=== PATIENT | female | born 1940 | race African-American/Black ===

== ENCOUNTER 2017-03-04 10:09 | Inpatient (IN) | payer OTHER ==
[~2017-03-04] VITALS: Ht 167.6 cm; Wt 82.8 kg
[2017-03-04 11:08] LABS: EOSINOPHIL (%) 0.1 % (0-5); HEMATOCRIT 36.9 % (36.0-46.0); IMMATURE GRANULOCYTE (%) 0.4 % (0.0-0.7); INSTRUMENT ABS NEUTROPHIL CT 7.8 K/uL; LYMPHOCYTE COUNT 1.4 K/uL (1.0-2.8); MCH 28.7 PG (29.0-34.0); MCHC 32.8 G/DL (30.0-36.0); MCV 87.4 FL (83-99); MEAN PLAT.VOLUME 10.3 uM^3 (9.5-12.4); MONOCYTE COUNT 0.8 K/uL (0-0.8); NEUTROPHIL (%) 77.7 % (45-76); NEUTROPHIL COUNT 7.8 K/uL (1.8-6.4); PLATELET COUNT 249 K/uL (156-360); RBC DIS.WIDTH-CV 14.5 % (11.8-14.6); RBC DIS.WIDTH-SD 46.2 % (39-53); RED BLOOD COUNT 4.22 M/uL (3.80-5.20)
[2017-03-04 11:14] LABS: INTER. NORMALIZED RATIO 1.2; PROTHROMBIN TIME 13.9 SEC (10.2-12.9)
[2017-03-04 11:16] LABS: CHLORIDE 113 mEq/L (99-109); POTASSIUM 3.5 mEq/L (3.7-5.4); SODIUM 144 mEq/L (136-147)
[2017-03-04 11:17] LABS: PTT 28.6 SEC (25-37)
[2017-03-04 11:18] LABS: GLUCOSE 118 mg/dL (70-99)
[2017-03-04 11:19] LABS: ANION GAP 10 MEQ/L (2-14)
[2017-03-04 11:20] LABS: TOTAL BILIRUBIN 1.4 mg/dL (0.0-1.0)
[2017-03-04 11:21] LABS: ALKALINE PHOSPHATASE 98 IU/L (3-129)
[2017-03-04 11:22] LABS: GFR ESTIMATE (CALCULATED) > 59 mL/min/
[2017-03-04 11:23] LABS: UREA NITROGEN (BUN) 16 mg/dL (9-23)
[2017-03-04 11:27] LABS: TROP-I INTERPRETATION NEGATIVE; TROPONIN-I < 0.01 ng/mL (0.0-0.30)
[2017-03-04] MEDS ORDERED: ANASTROZOLE1 MG PO (17:44)
[2017-03-04] MEDS ORDERED: LO-DOSE ASPIRIN81 M1 PO (17:44)
[2017-03-04] MEDS ORDERED: PROTONIX40 MG PO (17:44)
[2017-03-04] MEDS ORDERED: METOPROLOL SUC100 MG PO (17:44)
[2017-03-04] MEDS ORDERED: NIFEDIPINE ER90 MG PO (17:44)
[2017-03-04] MEDS ORDERED: CALCIUM 600 +1 EAC2 PO (17:45)
[2017-03-04] MEDS ORDERED: ALEVE220 MG PO (17:45)
[2017-03-04] MEDS ORDERED: ATARAX,VISTARIL25 MG PO (17:45)
[2017-03-04] MEDS ORDERED: POTASSIUM CHLO20 ME1 PO (17:45)
[2017-03-04] MEDS ORDERED: LASIX40 MG PO (17:45)
[2017-03-04] MEDS ORDERED: FOLBIC TABLET1 EACH PO (17:45)
[2017-03-04 21:02] VITALS: BP 137/84
[2017-03-05 00:04] VITALS: BP 103/72
[2017-03-05 03:29] LABS: CHLORIDE 115 mEq/L (99-109); SODIUM 143 mEq/L (136-147)
[2017-03-05 03:32] LABS: ANION GAP 8 MEQ/L (2-14)
[2017-03-05 03:41] LABS: GLUCOSE 105 mg/dL (70-99)
[2017-03-05 03:45] LABS: ALKALINE PHOSPHATASE 74 IU/L (3-129); GFR ESTIMATE (CALCULATED) > 59 mL/min/
[2017-03-05 03:51] LABS: UREA NITROGEN (BUN) 16 mg/dL (9-23)
[2017-03-05 06:37] VITALS: BP 149/89
[2017-03-05 11:29] VITALS: BP 119/72
[2017-03-05 15:15] VITALS: BP 104/63
[2017-03-05 19:34] VITALS: BP 130/82
[2017-03-05 23:41] VITALS: BP 123/74
[2017-03-06 02:15] LABS: INTER. NORMALIZED RATIO 1.3; PROTHROMBIN TIME 14.5 SEC (10.2-12.9)
[2017-03-06 02:17] LABS: PTT 61.7 SEC (25-37)
[2017-03-06 04:00] VITALS: BP 123/77
[2017-03-06 07:22] LABS: HEMATOCRIT 36.8 % (36.0-46.0); MCH 29.2 PG (29.0-34.0); MCHC 33.2 G/DL (30.0-36.0); PLATELET COUNT 268 K/uL (156-360); RBC DIS.WIDTH-CV 14.4 % (11.8-14.6); RBC DIS.WIDTH-SD 46.9 % (39-53); RED BLOOD COUNT 4.18 M/uL (3.80-5.20); WHITE BLOOD COUNT 7.1 K/uL (4.1-10.2)
[2017-03-06 07:48] VITALS: BP 120/82
[2017-03-06 11:02] VITALS: BP 153/92
[2017-03-06 16:21] VITALS: BP 124/82
[2017-03-06 17:39] LABS: ANION GAP 16 MEQ/L (2-14); CHLORIDE 110 MEQ/L (99-109); POTASSIUM 4.1 MEQ/L (3.7-5.4); SAMPLE HEMOLYSIS CHECK 1; SAMPLE ICTERIC CHECK 0; SAMPLE LIPEMIA CHECK 0; SODIUM 142 MEQ/L (136-147)
[2017-03-06 17:45] LABS: GFR ESTIMATE (CALCULATED) > 59 mL/min/; GLUCOSE 121 mg/dL (70-99); UREA NITROGEN (BUN) 17 mg/dL (9-23)
[2017-03-06 18:10] LABS: TROP-I INTERPRETATION NEGATIVE; TROPONIN-I < 0.01 ng/mL (0.0-0.30)
[2017-03-06 19:47] VITALS: BP 127/80
[2017-03-07 00:04] VITALS: BP 119/74
[2017-03-07 01:01] LABS: TROP-I INTERPRETATION NEGATIVE; TROPONIN-I < 0.01 ng/mL (0.0-0.30)
[2017-03-07 03:19] VITALS: BP 110/72
[2017-03-07 06:03] VITALS: BP 102/69
[2017-03-07 06:49] LABS: BASOPHIL COUNT 0.1 K/uL (0-0.1); EOSINOPHIL (%) 5.5 % (0-5); EOSINOPHIL COUNT 0.4 K/uL (0-0.3); HEMATOCRIT 30.7 % (36.0-46.0); IMMATURE GRANULOCYTE (%) 0.2 % (0.0-0.7); INSTRUMENT ABS NEUTROPHIL CT 3.9 K/uL; LYMPHOCYTE COUNT 1.6 K/uL (1.0-2.8); MCH 29.2 PG (29.0-34.0); MCHC 33.2 G/DL (30.0-36.0); MEAN PLAT.VOLUME 10.4 uM^3 (9.5-12.4); MONOCYTE (%) 8.4 % (3-12); MONOCYTE COUNT 0.5 K/uL (0-0.8); NEUTROPHIL (%) 60.9 % (45-76); NEUTROPHIL COUNT 3.9 K/uL (1.8-6.4); PLATELET COUNT 255 K/uL (156-360); RBC DIS.WIDTH-CV 14.4 % (11.8-14.6); RED BLOOD COUNT 3.49 M/uL (3.80-5.20); TROP-I INTERPRETATION NEGATIVE; TROPONIN-I < 0.01 ng/mL (0.0-0.30); WHITE BLOOD COUNT 6.4 K/uL (4.1-10.2)
[2017-03-07 06:51] LABS: INTER. NORMALIZED RATIO 2.2
[2017-03-07 06:52] LABS: PROTHROMBIN TIME 25.2 SEC (10.2-12.9)
[2017-03-07 06:54] LABS: PTT 35.4 SEC (25-37)
[2017-03-07 07:11] LABS: ALKALINE PHOSPHATASE 70 IU/L (3-129); ANION GAP 9 MEQ/L (2-14); CHLORIDE 111 MEQ/L (99-109); GFR ESTIMATE (CALCULATED) > 59 mL/min/; GLUCOSE 108 mg/dL (70-99); POTASSIUM 3.9 MEQ/L (3.7-5.4); SAMPLE HEMOLYSIS CHECK 0; SAMPLE ICTERIC CHECK 0; SAMPLE LIPEMIA CHECK 0; SODIUM 144 MEQ/L (136-147); TOTAL BILIRUBIN 0.8 MG/DL (0.0-1.0); UREA NITROGEN (BUN) 16 mg/dL (9-23)
[2017-03-07 07:54] VITALS: BP 111/76
[2017-03-07 16:04] VITALS: BP 127/69
[2017-03-07 19:31] VITALS: BP 123/84
[2017-03-08 00:34] VITALS: BP 133/85
[2017-03-08 04:03] VITALS: BP 135/87
[2017-03-08 06:31] LABS: BASOPHIL COUNT 0.1 K/uL (0-0.1); EOSINOPHIL (%) 6.7 % (0-5); EOSINOPHIL COUNT 0.5 K/uL (0-0.3); IMMATURE GRANULOCYTE (%) 0.4 % (0.0-0.7); INSTRUMENT ABS NEUTROPHIL CT 4.1 K/uL; LYMPHOCYTE COUNT 1.7 K/uL (1.0-2.8); MCH 28.7 PG (29.0-34.0); MCHC 32.4 G/DL (30.0-36.0); MCV 88.5 FL (83-99); MEAN PLAT.VOLUME 10.4 uM^3 (9.5-12.4); MONOCYTE (%) 6.6 % (3-12); MONOCYTE COUNT 0.5 K/uL (0-0.8); NEUTROPHIL (%) 60.2 % (45-76); NEUTROPHIL COUNT 4.1 K/uL (1.8-6.4); PLATELET COUNT 255 K/uL (156-360); RBC DIS.WIDTH-CV 14.2 % (11.8-14.6); RBC DIS.WIDTH-SD 45.8 % (39-53); RED BLOOD COUNT 3.73 M/uL (3.80-5.20); WHITE BLOOD COUNT 6.8 K/uL (4.1-10.2)
[2017-03-08 06:55] LABS: ALKALINE PHOSPHATASE 73 IU/L (3-129); ANION GAP 7 MEQ/L (2-14); CHLORIDE 110 MEQ/L (99-109); GFR ESTIMATE (CALCULATED) > 59 mL/min/; GLUCOSE 117 mg/dL (70-99); SAMPLE HEMOLYSIS CHECK 0; SAMPLE ICTERIC CHECK 0; SAMPLE LIPEMIA CHECK 0; SODIUM 143 MEQ/L (136-147); TOTAL BILIRUBIN 0.7 MG/DL (0.0-1.0); UREA NITROGEN (BUN) 12 mg/dL (9-23)
[2017-03-08 08:24] VITALS: BP 146/84
[2017-03-08 10:58] LABS: HBSG INDEX 0.33
[2017-03-08 10:59] LABS: HPCA INDEX 0.15
[2017-03-08 11:00] LABS: ANTI-HEPATITIS A VIRUS (IGM) Nonreactive; HAV INDEX 0.19
[2017-03-08 11:01] LABS: ANTI-HEPATITIS B CORE (IGM) Nonreactive; HBC IgM INDEX 0.07
[2017-03-08 11:57] VITALS: BP 117/78
[2017-03-08 20:36] VITALS: BP 128/73; BP 140/77
[2017-03-09 04:09] VITALS: BP 117/77
[2017-03-09 06:37] LABS: EOSINOPHIL (%) 7.1 % (0-5); EOSINOPHIL COUNT 0.5 K/uL (0-0.3); HEMATOCRIT 30.8 % (36.0-46.0); IMMATURE GRANULOCYTE (%) 0.4 % (0.0-0.7); INSTRUMENT ABS NEUTROPHIL CT 4.1 K/uL; LYMPHOCYTE COUNT 1.7 K/uL (1.0-2.8); MCH 28.3 PG (29.0-34.0); MCHC 32.1 G/DL (30.0-36.0); MONOCYTE (%) 7.7 % (3-12); MONOCYTE COUNT 0.5 K/uL (0-0.8); NEUTROPHIL (%) 59.8 % (45-76); NEUTROPHIL COUNT 4.1 K/uL (1.8-6.4); PLATELET COUNT 262 K/uL (156-360); RBC DIS.WIDTH-CV 14.2 % (11.8-14.6); RBC DIS.WIDTH-SD 45.7 % (39-53); WHITE BLOOD COUNT 6.8 K/uL (4.1-10.2)
[2017-03-09 06:56] LABS: ALKALINE PHOSPHATASE 79 IU/L (3-129); ANION GAP 7 MEQ/L (2-14); CHLORIDE 110 MEQ/L (99-109); GFR ESTIMATE (CALCULATED) > 59 mL/min/; GLUCOSE 95 mg/dL (70-99); POTASSIUM 3.8 MEQ/L (3.7-5.4); SAMPLE HEMOLYSIS CHECK 0; SAMPLE ICTERIC CHECK 0; SAMPLE LIPEMIA CHECK 0; SODIUM 142 MEQ/L (136-147); TOTAL BILIRUBIN 0.6 MG/DL (0.0-1.0); UREA NITROGEN (BUN) 10 mg/dL (9-23)
[2017-03-09 07:31] VITALS: BP 118/80
[2017-03-09 17:29] VITALS: BP 127/82
[2017-03-09 20:45] VITALS: BP 140/85
[2017-03-09 23:35] VITALS: BP 124/86
[2017-03-10 06:12] LABS: BASOPHIL COUNT 0.1 K/uL (0-0.1); EOSINOPHIL (%) 6.3 % (0-5); EOSINOPHIL COUNT 0.5 K/uL (0-0.3); HEMATOCRIT 31.7 % (36.0-46.0); IMMATURE GRANULOCYTE (%) 0.7 % (0.0-0.7); IMMATURE GRANULOCYTE COUNT 0.1 K/uL; INSTRUMENT ABS NEUTROPHIL CT 4.9 K/uL; LYMPHOCYTE COUNT 1.6 K/uL (1.0-2.8); MCH 29.2 PG (29.0-34.0); MCHC 32.8 G/DL (30.0-36.0); MEAN PLAT.VOLUME 9.9 uM^3 (9.5-12.4); MONOCYTE (%) 7.8 % (3-12); MONOCYTE COUNT 0.6 K/uL (0-0.8); NEUTROPHIL (%) 63.6 % (45-76); NEUTROPHIL COUNT 4.9 K/uL (1.8-6.4); PLATELET COUNT 257 K/uL (156-360); RBC DIS.WIDTH-CV 14.3 % (11.8-14.6); RBC DIS.WIDTH-SD 46.1 % (39-53); RED BLOOD COUNT 3.56 M/uL (3.80-5.20); WHITE BLOOD COUNT 7.7 K/uL (4.1-10.2)
[2017-03-10 06:34] LABS: ALKALINE PHOSPHATASE 72 IU/L (3-129); ANION GAP 7 MEQ/L (2-14); CHLORIDE 110 MEQ/L (99-109); GFR ESTIMATE (CALCULATED) > 59 mL/min/; GLUCOSE 92 mg/dL (70-99); POTASSIUM 3.7 MEQ/L (3.7-5.4); SAMPLE HEMOLYSIS CHECK 0; SAMPLE ICTERIC CHECK 0; SAMPLE LIPEMIA CHECK 0; SODIUM 142 MEQ/L (136-147); TOTAL BILIRUBIN 0.5 MG/DL (0.0-1.0); UREA NITROGEN (BUN) 10 mg/dL (9-23)
[2017-03-10 07:30] VITALS: BP 140/84
[2017-03-10] MEDS ORDERED: ANASTROZOLE1 MG PO (12:08)
[2017-03-10] MEDS ORDERED: DILTIAZEM 24HR120 MG PO (12:08)
[2017-03-10] MEDS ORDERED: ATARAX,VISTARIL25 MG PO (12:08)
[2017-03-10] MEDS ORDERED: LASIX40 MG PO (12:08)
[2017-03-10] MEDS ORDERED: XARELTO15 MG PO (12:08)
[2017-03-10] MEDS ORDERED: XARELTO20 MG PO (12:08)
[2017-03-10] MEDS ORDERED: SUCRALFATE1 GM/10 ML PO (12:08)
[2017-03-10] MEDS ORDERED: LOPRESSOR50 MG PO (12:08)
[2017-03-10] MEDS ORDERED: POTASSIUM CHLO20 ME1 PO (12:08)
== END 2017-03-10 15:42 | disposition home or self-care (01) | DRG 175 ==
LOC: EME 10:09 → EDOF 19:10 → 5SOUTH 19:10 → ENRESERV 19:11 → 5SOUTH 20:29
PROVIDERS: Emergency Medicine; Hospitalist; Physician Assistant Medical
DX: I26.99 Other pulmonary embolism without acute cor pulmonale (principal); J96.01 Acute respiratory failure with hypoxia; J18.9 Pneumonia, unspecified organism; I27.20 Pulmonary hypertension, unspecified; I11.0 Hypertensive heart disease with heart failure; I50.810 Right heart failure, unspecified; R79.89 Other specified abnormal findings of blood chemistry; R59.0 Localized enlarged lymph nodes; R19.7 Diarrhea, unspecified; R42 Dizziness and giddiness; T36.1X5A Adverse effect of cephalosporins and other beta-lactam antibiotics, initial encounter; I36.1 Nonrheumatic tricuspid (valve) insufficiency; K21.9 Gastro-esophageal reflux disease without esophagitis; E78.5 Hyperlipidemia, unspecified; E03.9 Hypothyroidism, unspecified; G89.29 Other chronic pain; M54.16 Radiculopathy, lumbar region; M19.90 Unspecified osteoarthritis, unspecified site; K42.9 Umbilical hernia without obstruction or gangrene; Z85.3 Personal history of malignant neoplasm of breast; Z79.811 Long term (current) use of aromatase inhibitors; Z79.82 Long term (current) use of aspirin; Z90.710 Acquired absence of both cervix and uterus; Z91.041 Radiographic dye allergy status; Z86.711 Personal history of pulmonary embolism; Z82.49 Family history of ischemic heart disease and other diseases of the circulatory system
CPT/HCPCS: 71020; 71250; 74176; 76705; 78582; 80048; 80053; 80074; 83880; 84443; 84484; 85025; 85027; 85610; 85730; 87040; 87070; 87205; 87493; 87502; 93005; 93306; 93970; 94010; 94799; 99202; 99281; 99285; A9540; A9567; J0456; J0696; J1885; J7030; J7040